=== PATIENT | female | born 1960 | race Caucasian/White ===

== ENCOUNTER 2021-06-13 13:05 | Outpatient (REF) | payer BC, SELFPAY ==
--- NOTE | ~2021-06-13 | MM_ITS ---
EXAMINATION: MM SCREENING DIGITAL BREAST TOMOSYNTHESIS, BILATERAL CLINICAL INFORMATION: Screening. Asymptomatic. The lifetime risk of breast cancer based on the Tyrer-Cuzick Model is 13%. COMPARISON: Mammography: 03/12/2020, 03/06/2019, 01/08/2018, 07/02/2017, left breast ultrasound 07/17/2018, 01/08/2018 TECHNIQUE: Digital breast tomosynthesis is performed in both the craniocaudal and mediolateral oblique views along with computer-aided detection (CAD). Synthesized 2D images are generated from the tomosynthesis. Additional left MLO view is provided. FINDINGS: There are scattered areas of fibroglandular density (ACR BI-RADS breast composition Category b). Parenchymal pattern is similar to prior studies. There is no developing density or interval mass or architectural abnormality. Retroareolar nodularity left breast is stable. There is biopsy clip marker again noted anterior central 12:00 right breast. Scattered calcifications are again seen. The axilla and skin contours are unremarkable. No significant changes from prior exams. MM/MM tomosynthesis screening BI IMPRESSION: No mammographic evidence of malignancy. ASSESSMENT: BI-RADS 2: Benign RECOMMENDATION: Routine annual mammography screening. This patient's information was entered into a reminder system with a target due date for their next mammogram.
== END 2021-06-13 13:06 | disposition home or self-care (01) ==
LOC: HO.MAMMO 13:05
PROVIDERS: PCP Internal Medicine; Visit Provider Nurse Practitioner Adult Health
DX: Z12.31 Encounter for screening mammogram for malignant neoplasm of breast (principal)
CPT/HCPCS: 77063; 77067

== ENCOUNTER 2022-07-07 08:37 | Outpatient (REF) | payer BC, SELFPAY ==
--- NOTE | ~2022-07-07 | MM_ITS ---
EXAMINATION: MM SCREENING DIGITAL BREAST TOMOSYNTHESIS, BILATERAL CLINICAL INFORMATION: Screening. Asymptomatic. The lifetime risk of breast cancer based on the Tyrer-Cuzick Model is 10%. COMPARISON: Mammography: 06/13/2021, 03/12/2020, 03/06/2019 TECHNIQUE: Digital breast tomosynthesis is performed in both the craniocaudal and mediolateral oblique views along with computer-aided detection (CAD). Synthesized 2D images are generated from the tomosynthesis. FINDINGS: There are scattered areas of fibroglandular density (ACR BI-RADS breast composition Category b). Parenchymal pattern is similar to prior studies and there is no interval developing density, significant mass, architectural abnormality. Right breast again has biopsy clip marker central 12:00 position. There is stable retroareolar nodularity left breast. Scattered bilateral calcifications are similar to prior studies. Some of the calcifications posterior medial breasts appear dermal. The axilla and skin contours are unremarkable. There are no significant changes from prior studies. MM/MM tomosynthesis screening BI IMPRESSION: -No mammographic evidence of malignancy. -No significant changes from prior exams. ASSESSMENT: BI-RADS 2: Benign RECOMMENDATION: Routine annual mammography screening. This patient's information was entered into a reminder system with a target due date for their next mammogram.
== END 2022-07-07 08:38 | disposition home or self-care (01) ==
LOC: HO.MAMMO 08:37
PROVIDERS: PCP Internal Medicine; Visit Provider Internal Medicine
DX: Z12.31 Encounter for screening mammogram for malignant neoplasm of breast (principal)
CPT/HCPCS: 77063; 77067

== ENCOUNTER 2023-07-13 09:23 | Outpatient (REF) | payer BC, SELFPAY ==
--- NOTE | ~2023-07-13 | MM_ITS ---
EXAMINATION: MM SCREENING DIGITAL BREAST TOMOSYNTHESIS, BILATERAL CLINICAL INFORMATION: Screening. Asymptomatic. The patient had a prior, benign, right stereotactic biopsy of calcifications in the remote past. The patient does not give a history of prior breast surgery. COMPARISON: Mammography: This study is compared with prior exams dating back to 2019. TECHNIQUE: Digital breast tomosynthesis is performed in both the craniocaudal and mediolateral oblique views along with computer-aided detection (CAD). Synthesized 2D images are generated from the tomosynthesis. FINDINGS: There are scattered areas of fibroglandular density (ACR BI-RADS breast composition Category b). In the upper inner quadrant of the right breast, at a middle depth, there is an asymmetry which warrants additional mammographic and targeted sonographic evaluation. There is a tissue marker in the upper outer quadrant of the right breast at an anterior depth. In the left breast, there are no significant masses, abnormal calcifications, or other abnormalities. MM/MM tomosynthesis screening BI IMPRESSION: Asymmetry of the superior aspect of the right breast warrants additional mammographic and targeted sonographic evaluation. No mammographic signs of malignancy left breast. ASSESSMENT: BI-RADS BI-RADS 0 - Incomplete: Needs additional Imaging. RECOMMENDATION: 1. Additional views of the right breast. At the time of the diagnostic mammography, further inquiry should be made as to any history of breast surgery. If there are any scars, then they should be marked for all diagnostic mammography views. 2. Targeted ultrasound if warranted after review of the additional views. 3. Radiology department staff will contact the patient for additional imaging. Additional Imaging required This examination should not preclude the clinical evaluation of a suspicious palpable abnormality. This patient's information was entered into a reminder system with a target due date for their next mammogram.
== END 2023-07-13 09:24 | disposition home or self-care (01) ==
LOC: HO.MAMMO 09:23
PROVIDERS: PCP Internal Medicine; Visit Provider Internal Medicine
DX: Z12.31 Encounter for screening mammogram for malignant neoplasm of breast (principal)
CPT/HCPCS: 77063; 77067

== ENCOUNTER → 2023-07-13 09:30 | Outpatient (BNV) | payer BC, SELFPAY | PROVIDERS: PCP Internal Medicine; Visit Provider Radiology Diagnostic Radiology | DX: Z12.31 Encounter for screening mammogram for malignant neoplasm of breast (principal) | CPT/HCPCS: 77063; 77067 ==

== ENCOUNTER 2023-08-03 14:27 | Outpatient (REF) | payer BC, SELFPAY ==
--- NOTE | ~2023-08-03 | MM_ITS ---
EXAMINATION: MM DIAGNOSTIC DIGITAL BREAST TOMOSYNTHESIS, RIGHT CLINICAL INFORMATION: Evaluate one view asymmetry seen slightly upper right breast MLO view only, seen on tomographic views. No definite correlate seen on CC view. Patient has a remote history of bilateral breast reduction surgery. Patient has a history of benign right needle biopsy. COMPARISON: Mammography: 07/13/2023, 07/07/2022, 06/13/2021, and dating back to 2016. TECHNIQUE: Digital breast tomosynthesis is performed. 2D images are generated from the tomosynthesis. The following views are obtained: Full-field right 3-D digital mediolateral view, and a 3-D spot compression view in the right MLO projection. FINDINGS: There are scattered areas of fibroglandular density (ACR BI-RADS breast composition Category b). Additional views show stable and unchanged appearance of the asymmetry in the slightly upper central right MLO view on several prior exams, identical when compared with 06/13/2021. This is consistent with post reduction mammoplasty scarring. No definite mass, new suspicious architectural change, or suspicious calcifications identified in the right breast. There is a post benign biopsy clip in the mid to anterior upper central right breast. No skin or axillary abnormality. MM/MM tomosynthesis added views R IMPRESSION: 1 view asymmetry corresponds to unchanged scarring from prior reduction mammoplasty, identical in appearance to 06/13/2021 and priors. There are no findings suspicious for malignancy. Recommend the patient return to routine screening. ASSESSMENT: BI-RADS BI-RADS 2 - Benign Findings RECOMMENDATION: 1 year F/U Results were provided to the patient at time of visit by the technologist. This patient's information was entered into a reminder system with a target due date for their next mammogram.
== END 2023-08-03 14:28 | disposition home or self-care (01) ==
LOC: HO.MAMMO 14:27
PROVIDERS: PCP Internal Medicine; Visit Provider Internal Medicine
DX: R92.8 Other abnormal and inconclusive findings on diagnostic imaging of breast (principal)
CPT/HCPCS: 77061; 77065

== ENCOUNTER → 2023-08-03 14:30 | Outpatient (BNV) | payer BC, SELFPAY | PROVIDERS: PCP Internal Medicine; Visit Provider Radiology Diagnostic Radiology | DX: R92.8 Other abnormal and inconclusive findings on diagnostic imaging of breast (principal) | CPT/HCPCS: 77061; 77065 ==

== ENCOUNTER → 2024-07-18 08:30 | Outpatient (BNV) | payer BC, SELFPAY | PROVIDERS: PCP Internal Medicine; Visit Provider Internal Medicine | DX: Z12.31 Encounter for screening mammogram for malignant neoplasm of breast (principal) | CPT/HCPCS: 77063; 77067 ==

== ENCOUNTER 2024-07-18 08:31 | Outpatient (REF) | payer BC, SELFPAY ==
--- OUTSIDE RECORDS SUMMARY | 2024-07-18 08:51 | XMS_ITS | Continuity of Care Document ---
Author Organization [facility] Address [address] [place] [address] [address] [place] [address]- Care Team Providers Care Bus Escort Name Role Phone Latesha Yan MD Primary Care Physician [phone] Encounter [facility] Date(s): 06/05/24 - 07/05/24 [facility] [address] [place] [id number] Attending Physician: Admtr, [id number] Admitting Physician: AdmtrJay Referring Physician: Admtr, Ar8 Encounter Type: Triage Allergies, Adverse Reactions, Alerts No Known Allergies Immunizations Given and Recorded Vaccine Date Status Refusal Reason RSV vaccine preF3, recombinant 06/07/23 Recorded influenza virus vaccine, inactivated 06/07/23 Talib rded influenza virus vaccine, inactivated 09/14/21 Give n influenza virus vaccine, inactivated 1 05/20/19 [facility] influenza virus vaccine, inactivated 10/03/16 Talib rded influenza virus vaccine, inactivated 2 04/02/15 [facility] influenza virus vaccine, inactivated 04/27/14 Talib rded influenza virus vaccine, inactivated 03/31/13 Talib rded influenza virus vaccine, inactivated 08/05/10 Give n tetanus/diphtheria/pertussis, acel(Tdap) 09/19/22 Given tetanus/diphtheria/pertussis, acel(Tdap) 3 02/21/12 Given SARS-CoV-2 (COVID-19) mRNA-1273 vaccine 10/04/21 R ecorded SARS-CoV-2 (COVID-19) mRNA-1273 vaccine 11/06/20 R ecorded SARS-CoV-2 (COVID-19) mRNA-1273 vaccine 10/09/20 R ecorded pneumococcal 23-valent vaccine 02/13/17 Given Tetanus Toxoid Vaccine (oldterm) 11/11/01 Given 1Result Comment: [facility] [id number] 2Admin Note: [facility] info given to patient 3[place] [id number] Problem List Condition Confirmation Course Effective Dates Status H ealth Status Informant Elevated alkaline phosphatase level Confirmed Active Atrophic vaginitis Confirmed Active Back pain Confirmed 05/21/06 Active Shortness of breath Confirmed Active Edema Confirmed 12/31/12 Active Family history of osteoporosis Confirmed Active Folate deficiency Confirmed Active GERD (gastroesophageal reflux disease) Confirmed Active Chronic GERD Confirmed Active IFG (impaired fasting glucose) Confirmed Active Lump in neck Confirmed Active Migraine Confirmed Active Mild depression Confirmed Active Mild persistent asthma Confirmed Active Overactive bladder Confirmed Active Palpitations Confirmed Active Weakness of pelvic floor Confirmed Active Post-menopausal bleeding Confirmed Active Radiculopathy Confirmed 05/21/06 Active Severe obesity (BMI 35.0-39.9) with comorbidity Confirmed Active Hives Confirmed Active Social History Social History Type Response Smoking Status Former smoker, quit more than 30 days ago entered on: 11/22/23 Sex Sex Representation Female (finding) Implantable Device List Procedure Provider Procedure Date Device Type Site Transvaginal Tape Cysto Halley Monet MD 01/19/23 Unk nown Vagina Device Identifier Serial Number Lot or Batch Number Manufacturing Date Expiration Date Distinct Identification Code MRI Safety Implantable Status Assigning Authority [id number] Unknown [id number] Unknown 11/26/25 Unknown Unknown Active GS1 MG Breast Views * [address], Kesha Donaldson: REVIEW Event Display: MM Mammogram, Non- Authored Date: Patient Care team information Care Team Personnel Name: Luana Shahid RN Position: [facility] RN Member Role: Primary Care Nurse Name: Ara Caldwell RN Position: [facility] JOSE Nurse Member Role: Primary Care Nurse Name: Latesha Yan MD Position: [facility] Physician - Primary Care Member Role: PCP Address: [address] [place] [address] Telecom: Name: Georgina Peña RN Position: [facility] RN Member Role: Primary Care Nurse Name: Emiliana Garza RN Position: [facility] RN Member Role: Primary Care Nurse Care Team Related Persons Name: MEEK JOLLEY Name: STEPHON BUTTS Insurance Providers Guarantor name: ISATU JOLLEY [facility] Plan Information #: 1 Payer: [employer] Member Number: NA Policy Number: NA Group Number: NA
== END 2024-07-18 08:32 | disposition home or self-care (01) ==
LOC: HO.MAMMO 08:31
PROVIDERS: PCP Internal Medicine; Visit Provider Internal Medicine
DX: Z12.31 Encounter for screening mammogram for malignant neoplasm of breast (principal)
CPT/HCPCS: 77063; 77067